=== PATIENT | female | born 1960 | race American Indian/Alaskan Native ===

== ENCOUNTER 2016-10-31 12:58 | Emergency (ER) | payer MEDICAID ==
[2016-10-31] MEDS ORDERED: LORazepam 2 MG/ML MDV IV ONE (13:05)
[2016-10-31] MEDS ORDERED: Sodium Chloride 0.9% 1,000 ML IV SCH (13:45)
[2016-10-31 13:49] LABS: CHLORIDE,CL 103 mmol/L (98-115); SODIUM,NA 143 mmol/L (136-145)
[2016-10-31] MEDS ORDERED: LORazepam 2 MG/ML MDV IVPUSH ONE ×2 (13:50)
[2016-10-31 14:04] LABS: O2 DELIVERY DEVICE NON REBR MASK; O2 FLOW RATE 0 L/min
[2016-10-31 14:08] LABS: PCO2 ARTERIAL 83 mmHG (35-45)
[2016-10-31 14:09] LABS: BASE EXCESS ARTERIAL -9 mmol/L (-2-3); BICARBONATE,ARTERIAL 21.5 mmol/L (22-26); O2 SATURATION ARTERIAL 93 % (95-98); PO2 ARTERIAL 104 mmHG (80-105)
[2016-10-31] MEDS ORDERED: Clindamycin Phosphate 600 MG in Dextrose 5% in Water 50 ML IV ONE ×4 (14:14→14:15)
[2016-10-31] MEDS ORDERED: Sodium Chloride 0.9% 50 ML ONE (14:27)
--- NOTE | 2016-10-31 14:31 | EDM.PDOC ---
ED HPI SEIZURE COMPLAINT - General Stated Complaint: Seizures Time Seen by Provider: 10/31/16 12:58 Source of Information: Reports: EMS, Family () History Limitations: Reports: Altered mental status - History of Present Illness INITIAL COMMENTS - FREE TEXT/NARRATIVE: Patient presents via ambulance with seizures. Her says her right hand was clenched and he has noticed that to be a sign of seizure starting so he gave her a second dose of her Keppra. He thinks she has been consistent in taking the Keppra everyday. She has been unresponsive but breathing on her own since the seizure began. She seemed to have serial seizures back to back. - Related Data Allergies/ADRs: Allergies Allergy/AdvReac Type Severity Reaction Status Date / Time No Known Allergies Allergy Verified 06/11/16 12:38 Home Meds: Home Meds levETIRAcetam [Keppra] 1,000 mg PO BID 11/27/13 [History] Social & Family History - Tobacco Use Second Hand Smoke Exposure: Yes - Alcohol Use Days Per Week of Alcohol Use: 0 - Recreational Drug Use Recreational Drug Use: Yes Drug Use in Last 12 Months: Yes Recreational Drug Type: Reports: Marijuana/Hashish Recreational Drug Last Use: Jul 2013 - Living Situation & Occupation Living situation: Reports: ED ROS GENERAL - Review of Systems Review Of Systems: Unable To Obtain - Physical Exam Exam: See Below Exam Limited By: Altered mental status General Appearance: obtunded Eye Exam: bilateral eye: other (right pupil is reactive, left has old injury) Nose: normal inspection, no blood Throat/Mouth: Normal lips, No airway compromise. No: Evidence of tongue biting , Perioral cyanosis Head Exam: atraumatic, normocephalic Respiratory/Chest: respiratory distress (sometimes she was breathing okay other times she was gasping or choking a little), crackles (bilat) Cardiovascular: tachycardia GI/Abdominal: no distention Neuro Exam (Abbreviated): unresponsive Extremities: no pedal edema Skin Exam: Warm, Dry, Intact, Normal color, No rash Course - Orders/Labs/Meds Orders: Active Orders 24 hr Category Date Time Status Chest 1V Frontal [CR] Routine Exams 10/31/16 Ordered CULTURE BLOOD [BC] Stat Lab 10/31/16 13:40 Ordered CULTURE BLOOD [BC] Stat Lab 10/31/16 13:40 Ordered DRUG SCREEN, URINE [URCHEM] Stat Lab 10/31/16 13:24 Uncollected KEPPRA [REF] Stat Lab 10/31/16 13:24 Ordered UA W/MICROSCOPIC [URIN] Stat Lab 10/31/16 13:25 Uncollected Clindamycin Phosphate [Cleocin] 600 mg Med 10/31/16 14:14 Ordered Dextrose 5% in Water 50 ml IV ONETIME Sodium Chloride 0.9% [Normal Saline] 1,000 ml Med 10/31/16 13:45 Active IV ASDIRECTED Blood Culture x2 Reflex Set [OM.PC] Stat Oth 10/31/16 13:40 Ordered Medication Orders Sodium Chloride (Normal Saline) 1,000 mls @ 500 mls/hr IV ASDIRECTED [facility]DR[facility] Clindamycin Phosphate 600 mg/ (Dextrose/Water) 54 mls @ 150 mls/hr IV ONETIME ONE Stop: 10/31/16 14:35 Labs: Laboratory Tests 10/31/16 10/31/16 10/31/16 Range/Units 13:10 13:10 13:10 WBC 18.8 H (5.0-10.0) 10^3/uL RBC 5.33 (3.80-5.50) 10^6/uL Hgb 16.9 H (12.0-16.0) g/dL Hct 51.8 H (37.0-47.0) % MCV 97.1 H (82.0-92.0) fL MCH 31.6 H (27.0-31.0) pg MCHC 32.6 (32.0-36.0) g/dL RDW 12.7 (11.5-14.5) % Plt Count 216 (150-300) 10^3/uL MPV 10.1 (7.4-10.4) fL Neut % (Auto) 48.7 L (50.0-70.0) % Lymph % (Auto) 43.1 H (20.0-40.0) % Jay % (Auto) 6.3 (2.0-8.0) % Eos % (Auto) 1.1 (1.0-3.0) % Baso % (Auto) 0.8 (0.0-1.0) % Neut # (Auto) 9.1 H (2.5-7.0) 10^3/uL Lymph # (Auto) 8.1 H (1.0-4.0) 10^3/uL Jay # (Auto) 1.2 H (0.1-0.8) 10^3/uL Eos # (Auto) 0.2 (0.1-0.3) 10^3/uL Baso # (Auto) 0.2 H (0.0-0.1) 10^3/uL ABG pH (7.35-7.45) ABG pCO2 (35-45) mmHG ABG pO2 (80-105) mmHG ABG HCO3 (22-26) mmol/L ABG Total CO2 (23-27) mmol/L ABG O2 Saturation (95-98) % ABG Base Excess (-2-3) mmol/L O2 Delivery Device Oxygen Flow Rate L/min Sodium 143 (136-145) mmol/L Potassium 4.0 (3.3-5.3) mmol/L Chloride 103 (98-115) mmol/L Carbon Dioxide 18.4 L (21.0-32.0) mmol/L BUN 11 (6-25) mg/dL Creatinine 0.78 (0.51-1.17) mg/dL Est Cr Clr Drug Dosing 68.72 mL/min Estimated GFR (MDRD) > 60 mL/min Glucose 241 H (70-110) mg/dL Calcium 9.3 (8.7-10.3) mg/dL Magnesium 2.5 H (1.8-2.4) mg/dL Total Bilirubin 0.6 (0.2-1.0) mg/dL AST 108 H (15-37) U/L ALT 109 H (12-78) U/L Alkaline Phosphatase 159 H (46-116) IU/L Total Protein 9.2 H (6.4-8.2) g/dL Albumin 4.22 (3.00-4.80) g/dL 10/31/16 Range/Units 13:55 WBC (5.0-10.0) 10^3/uL RBC (3.80-5.50) 10^6/uL Hgb (12.0-16.0) g/dL Hct (37.0-47.0) % MCV (82.0-92.0) fL MCH (27.0-31.0) pg MCHC (32.0-36.0) g/dL RDW (11.5-14.5) % Plt Count (150-300) 10^3/uL MPV (7.4-10.4) fL Neut % (Auto) (50.0-70.0) % Lymph % (Auto) (20.0-40.0) % Jay % (Auto) (2.0-8.0) % Eos % (Auto) (1.0-3.0) % Baso % (Auto) (0.0-1.0) % Neut # (Auto) (2.5-7.0) 10^3/uL Lymph # (Auto) (1.0-4.0) 10^3/uL Jay # (Auto) (0.1-0.8) 10^3/uL Eos # (Auto) (0.1-0.3) 10^3/uL Baso # (Auto) (0.0-0.1) 10^3/uL ABG pH 7.02 L* (7.35-7.45) ABG pCO2 83 H* (35-45) mmHG ABG pO2 104 (80-105) mmHG ABG HCO3 21.5 L (22-26) mmol/L ABG Total CO2 24 (23-27) mmol/L ABG O2 Saturation 93 L (95-98) % ABG Base Excess -9 L (-2-3) mmol/L O2 Delivery Device Non rebr mask Oxygen Flow Rate 0 L/min Sodium (136-145) mmol/L Potassium (3.3-5.3) mmol/L Chloride (98-115) mmol/L Carbon Dioxide (21.0-32.0) mmol/L BUN (6-25) mg/dL Creatinine (0.51-1.17) mg/dL Est Cr Clr Drug Dosing mL/min Estimated GFR (MDRD) mL/min Glucose (70-110) mg/dL Calcium (8.7-10.3) mg/dL Magnesium (1.8-2.4) mg/dL Total Bilirubin (0.2-1.0) mg/dL AST (15-37) U/L ALT (12-78) U/L Alkaline Phosphatase (46-116) IU/L Total Protein (6.4-8.2) g/dL Albumin (3.00-4.80) g/dL Meds: Medications Generic Name Dose Route Start Last Admin Trade Name Obi PRN Reason Stop Dose Admin Sodium Chloride 1,000 mls @ 500 mls/hr 10/31/16 13:45 Normal Saline IV ASDIRECTED [facility] Clindamycin Phosphate 600 mg/ 54 mls @ 150 mls/hr 10/31/16 14:14 Dextrose/Water IV 10/31/16 14:35 ONETIME ONE - Re-Assessments/Exams Free Text/Narrative Re-Assessment/Exam: 10/31/16 15:44 Patient showed mild seizure activity a couple of times and occasionally was moving around a little on the bed but mostly was just unresponsive and unaware of her surroundings. WBC is 18.8, CXR shows bilat infiltrates, pH is 7.02. Tox screen positive for marijuana. Keppra level sent out. Dr. Eng ( [facility] in [place]) accepted for transfer. She was intubated by flight crew and taken to [place]. Departure - Departure Time of Disposition: 15:35 Disposition: DC/Tfer to Acute Hospital 02 Condition: serious Clinical Impression: Unresponsive state, Seizures, generalized convulsive - My Orders Last 24 Hours: My Active Orders 10/31/16 Chest 1V Frontal [CR] Routine 10/31/16 13:24 DRUG SCREEN, URINE [URCHEM] Stat KEPPRA [REF] Stat 10/31/16 13:25 UA W/MICROSCOPIC [URIN] Stat 10/31/16 13:40 CULTURE BLOOD [BC] Stat CULTURE BLOOD [BC] Stat Blood Culture x2 Reflex Set [OM.PC] Stat 10/31/16 13:45 Sodium Chloride 0.9% [Normal Saline] 1,000 ml IV ASDIRECTED 10/31/16 14:14 Clindamycin Phosphate [Cleocin] 600 mg Dextrose 5% in Water 50 ml IV ONETIME - Assessment/Plan Last 24 Hours: My Active Orders 10/31/16 Chest 1V Frontal [CR] Routine 10/31/16 13:24 DRUG SCREEN, URINE [URCHEM] Stat KEPPRA [REF] Stat 10/31/16 13:25 UA W/MICROSCOPIC [URIN] Stat 10/31/16 13:40 CULTURE BLOOD [BC] Stat CULTURE BLOOD [BC] Stat Blood Culture x2 Reflex Set [OM.PC] Stat 10/31/16 13:45 Sodium Chloride 0.9% [Normal Saline] 1,000 ml IV ASDIRECTED 10/31/16 14:14 Clindamycin Phosphate [Cleocin] 600 mg Dextrose 5% in Water 50 ml IV ONETIME
== END 2016-10-31 15:33 ==
LOC: KA.ED 12:58
DX: R56.9 Unspecified convulsions (principal)
CPT/HCPCS: 36415; 36600; 71010; 80053; 80299; 80305; 81001; 82803; 83735; 85025; 87040; 96361; 96365; 99285; J2060; J7050; J7060; 80177; S0077

== ENCOUNTER 2017-08-02 09:39 | Emergency (ER) | payer MEDICAID ==
[2017-08-02] MEDS ORDERED: LORazepam 2 MG/ML SDV IVPUSH ONE (09:51)
[2017-08-02] MEDS ORDERED: Sodium Chloride 0.9% 1,000 ML IV ONE (09:52)
--- NOTE | 2017-08-02 09:58 | EDM.PDOC ---
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 EMS arrived and patient was post-ictal, but at time of arrival patient began to seize again prompting treatment. Pt has had 3 seizures in the last year requiring hospitalization for aspiration pneumonia in the past. Pt's seizures are well controlled on Keppra per . Family states no recent injuries, compliant with medication, no lifestyle changes of note. Onset: Sudden Duration: Chronic Location: Reports: Generalized Associated Symptoms: Reports: Confusion, Seizure. Denies: Fever/Chills - Related Data Allergies Allergy/AdvReac Type Severity Reaction Status Date / Time No Known Allergies Allergy Verified 08/02/17 10:58 Home Meds: Home Meds Carvedilol [Coreg] 3.125 mg PO DAILY 08/02/17 [History] levETIRAcetam [Keppra Xr] 1,500 mg PO BID 08/02/17 [History] Social & Family History - Tobacco Use Second Hand Smoke Exposure: Yes - Alcohol Use Days Per Week of Alcohol Use: 0 - Recreational Drug Use Recreational Drug Use: Yes Drug Use in Last 12 Months: Yes Recreational Drug Type: Reports: Marijuana/Hashish Recreational Drug Last Use: Jul 2013 - Living Situation & Occupation Living situation: Reports: ED ROS GENERAL - Review of Systems Review Of Systems: See Below Constitutional: Reports: No Symptoms HEENT: Reports: No Symptoms Respiratory: Reports: No Symptoms Cardiovascular: Reports: No Symptoms Endocrine: Reports: No Symptoms GI/Abdominal: Reports: No Symptoms : Reports: No Symptoms Musculoskeletal: Reports: No Symptoms Skin: Reports: No Symptoms Neurological: Reports: Confusion, Seizure Psychiatric: Reports: Confusion Hematologic/Lymphatic: Reports: No Symptoms Immunologic: Reports: No Symptoms - Physical Exam Exam: See Below Exam Limited By: Altered Mental Status General Appearance: Alert, WD/WN Eye Exam: Bilateral Eye: EOMI, PERRL Ears: Normal External Exam, Normal Canal, Hearing Grossly Normal, Normal TMs Nose: Normal Inspection, Normal Mucosa, No Blood Throat/Mouth: Normal Inspection, Normal Lips, Normal Teeth, Normal Gums, Normal Oropharynx, Normal Voice, No Airway Compromise Head Exam: Atraumatic, Normocephalic Neck: Normal Inspection, Supple, Non-Tender, Full Range of Motion Respiratory/Chest: No Respiratory Distress, Lungs Clear, Normal Breath Sounds, No Accessory Muscle Use, Chest Non-Tender Cardiovascular: Normal Peripheral Pulses, Regular Rate, Rhythm, No Edema, No Gallop, No JVD, No Murmur, No Rub GI/Abdominal: Normal Bowel Sounds, Soft, Non-Tender, No Organomegaly, No Distention, No Abnormal Bruit, No Mass Neuro Exam (Abbreviated): Alert, CN II-XII Intact, Normal Reflexes, No Motor/ Sensory Deficits, Disoriented, Slow to Respond. No: Oriented, Normal Cognition Back Exam: Normal Inspection, Full Range of Motion, NT Extremities: Normal Inspection, Normal Range of Motion, Non-Tender, No Pedal Edema, Normal Capillary Refill Psychiatric: Normal Mood, Flat Affect Skin Exam: Warm, Dry, Intact, Normal Color, No Rash EKG INTERPRETATION EKG Date: 08/02/17 Time: 09:53 Rhythm: NSR Rate (Beats/Min): 91 [place]: LAD-Left [place] Deviation P-Wave: Present QRS: LBBB ST-T: Normal QT: Normal Comparison: NA - No Prior EKG Course - Vital Signs Last Recorded V/S: Last Vital Signs Temp 36.6 C 08/02/17 10:53 Pulse 66 08/02/17 10:45 Resp 20 08/02/17 10:53 BP 168/99 H 08/02/17 10:53 Pulse Ox 93 L 08/02/17 10:53 - Orders/Labs/Meds Orders: Active Orders 24 hr Category Date Time Status EKG Documentation Completion [RC] ASDIRECTED Care 08/02/17 09:51 Active Chest 1V Frontal [CR] Stat Exams 08/02/17 09:51 Ordered Head wo Cont [CT] Stat Exams 08/02/17 09:51 Ordered DRUG SCREEN, URINE [URCHEM] Stat Lab 08/02/17 10:02 Uncollected KEPPRA [REF] Stat Lab 08/02/17 10:30 Received Labs: Laboratory Tests 08/02/17 08/02/17 08/02/17 Range/Units 10:15 10:30 10:30 WBC 6.7 (5.0-10.0) 10^3/uL RBC 4.67 (3.80-5.50) 10^6/uL Hgb 14.8 (12.0-16.0) g/dL Hct 46.0 (37.0-47.0) % MCV 98.4 H (82.0-92.0) fL MCH 31.7 H (27.0-31.0) pg MCHC 32.2 (32.0-36.0) g/dL RDW 12.3 (11.5-14.5) % Plt Count 204 (150-300) 10^3/uL MPV 8.7 (7.4-10.4) fL Neut % (Auto) 64.4 (50.0-70.0) % Lymph % (Auto) 27.1 (20.0-40.0) % [place] % (Auto) 5.6 (2.0-8.0) % Eos % (Auto) 1.9 (1.0-3.0) % Baso % (Auto) 1.0 (0.0-1.0) % Neut # (Auto) 4.3 (2.5-7.0) 10^3/uL Lymph # (Auto) 1.8 (1.0-4.0) 10^3/uL [place] # (Auto) 0.4 (0.1-0.8) 10^3/uL Eos # (Auto) 0.1 (0.1-0.3) 10^3/uL Baso # (Auto) 0.1 (0.0-0.1) 10^3/uL Sodium 137 (136-145) mmol/L Potassium 4.0 (3.3-5.3) mmol/L Chloride 103 (98-115) mmol/L Carbon Dioxide 28.0 (21.0-32.0) mmol/L BUN 11 (6-25) mg/dL Creatinine 0.57 (0.51-1.17) mg/dL Est Cr Clr Drug Dosing 88.59 mL/min Estimated GFR (MDRD) > 60 mL/min Glucose 107 (70-110) mg/dL Calcium 8.3 L (8.7-10.3) mg/dL Total Bilirubin 0.7 (0.2-1.0) mg/dL AST 93 H (15-37) U/L ALT 93 H (12-78) U/L Alkaline Phosphatase 91 (46-116) IU/L Creatine Kinase 71 (26-276) U/L CK-MB (CK-2) < 0.50 (0.00-4.30) ng/mL Troponin I < 0.04 (0.00-0.070) ng/mL Total Protein 7.8 (6.4-8.2) g/dL Albumin 3.76 (3.00-4.80) g/dL Specimen Type Urinvoid Urine Color Yellow (YELLOW) Urine Appearance Cloudy H (CLEAR) Urine pH 5.0 (5.0-9.0) Ur Specific [place] >= 1.030 (1.005-1.030) Urine Protein 100 H (NEGATIVE) mg/dL Urine Glucose (UA) Negative (NEGATIVE) mg/dL Urine Ketones Negative (NEGATIVE) mg/dL Urine Occult Blood Trace-intact H (NEGATIVE) Urine Nitrite Negative (NEGATIVE) Urine Bilirubin Negative (NEGATIVE) Urine Urobilinogen 0.2 (0.2-1.0) E.U./dL Ur Leukocyte Esterase Trace H (NEGATIVE) Urine RBC 0-5 /HPF Urine WBC 20-30 H /HPF Ur Epithelial Cells Many H /LPF Amorphous Sediment Many H (0/HPF) /HPF Urine Bacteria Many H (NONE TO FEW) /HPF Meds: Medications Discontinued Medications Generic Name Dose Route Start Last Admin Trade Name Freq PRN Reason Stop Dose Admin Sodium Chloride 1,000 mls @ 999 mls/hr 08/02/17 09:52 08/02/17 10:45 Normal Saline IV 08/02/17 10:52 999 mls/hr .BOLUS ONE Administration Lorazepam 2 mg 08/02/17 09:51 08/02/17 09:40 Ativan IVPUSH 08/02/17 09:52 2 mg ONETIME ONE Administration - Radiology Interpretation Free Text/Narrative:: CT Head-NAD CXR- NAD Departure - Departure Time of Disposition: 11:32 Disposition: DC/Tfer to Acute Hospital 02 Condition: Serious Clinical Impression: Seizure disorder - Discharge Information Referrals: PCP,Unknown [Primary Care Provider] - Forms: ED Department Discharge, Interfacility Transfer EMTALA - My Orders Last 24 Hours: My Active Orders 08/02/17 09:51 EKG Documentation Completion [RC] ASDIRECTED Chest 1V Frontal [CR] Stat Head wo Cont [CT] Stat 08/02/17 10:02 DRUG SCREEN, URINE [URCHEM] Stat 08/02/17 10:30 KEPPRA [REF] Stat - Assessment/Plan Last 24 Hours: My Active Orders 08/02/17 09:51 EKG Documentation Completion [RC] ASDIRECTED Chest 1V Frontal [CR] Stat Head wo Cont [CT] Stat 08/02/17 10:02 DRUG SCREEN, URINE [URCHEM] Stat 08/02/17 10:30 KEPPRA [REF] Stat Assessment:: 1. Seizure disorder with protracted postictal state 2. Urinary tract infection Plan: 1. transfer to [facility] for altered mental status 2. rocephin 1g IV for UTI 3. supportive care
[2017-08-02 11:14] LABS: CHLORIDE,CL 103 mmol/L (98-115); SODIUM,NA 137 mmol/L (136-145)
[2017-08-02 11:44] VITALS: BP 158/67
[2017-08-02] MEDS ORDERED: cefTRIAXone 1 GM Vial IVPUSH SCH (11:45)
[2017-08-02] MEDS ORDERED: Sodium Chloride 0.9% 1,000 ML ONE (12:22)
[2017-08-02] MEDS ORDERED: LORazepam 2 MG/ML SDV ONE (12:25)
== END 2017-08-02 12:35 ==
LOC: KA.ED 09:39
DX: G40.909 Epilepsy, unspecified, not intractable, without status epilepticus (principal); N39.0 Urinary tract infection, site not specified; Z79.899 Other long term (current) drug therapy
CPT/HCPCS: 70450; 71010; 80053; 80177; 81001; 82550; 82553; 84484; 85025; 93005; 96361; 96374; 96375; 99285; J0696; J2060; J7030; 36415

== ENCOUNTER 2018-10-16 13:47 | Emergency (ER) | payer MEDICAID ==
[2018-10-16 14:02] VITALS: BP 136/77
[2018-10-16 14:46] LABS: ANION GAP 24.7 mmol/L (5-15); CHLORIDE,CL 103 mmol/L (98-115); SODIUM,NA 152 mmol/L (136-145)
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
== END 2018-10-16 15:00 | disposition home or self-care (01) ==
LOC: KA.ED 13:47
DX: R10.84 Generalized abdominal pain (principal); I10 Essential (primary) hypertension; J44.9 Chronic obstructive pulmonary disease, unspecified
CPT/HCPCS: 36415; 80053; 80305-QW; 81001; 83690; 85025; 99284; G0480

== ENCOUNTER 2020-01-31 10:50 | Emergency (ER) | payer MEDICAID ==
[2020-01-31 10:58] VITALS: BP 157/81; PULSE 71
[2020-01-31] MEDS: Sodium Chloride 0.9% 1,000 ML IV ONE (11:01)
[2020-01-31] MEDS: Famotidine 20 MG/2 ML SDV IVPUSH ONE (11:04)
[2020-01-31] MEDS: methylPREDNISolone Sodium Succinate 125 MG/2 ML SDV IVPUSH ONE (11:07)
[2020-01-31] MEDS: diphenhydrAMINE 50 MG/ML SDV IVPUSH ONE (11:09)
[2020-01-31] MEDS: Sodium Chloride 0.9% 1,000 ML ONE (11:10)
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
== END 2020-01-31 12:17 | disposition home or self-care (01) ==
LOC: KA.ED 10:50
DX: T78.3XXA Angioneurotic edema, initial encounter (principal); R56.9 Unspecified convulsions; I10 Essential (primary) hypertension; J44.9 Chronic obstructive pulmonary disease, unspecified; Z79.899 Other long term (current) drug therapy
CPT/HCPCS: 96374; 96375; 99284-25; J1200; J2930; J3490; J7030

== ENCOUNTER 2020-02-07 21:50 | Emergency (ER) | payer MEDICAID ==
[2020-02-07 22:27] VITALS: BP 130/81; PULSE 74
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
[2020-02-07 22:44] LABS: ANION GAP 13.3 mmol/L (5-15); CHLORIDE,CL 102 mmol/L (98-115); SODIUM,NA 137 mmol/L (136-145)
== END 2020-02-07 23:25 | disposition home or self-care (01) ==
LOC: KA.ED 21:50
DX: R25.2 Cramp and spasm (principal); I10 Essential (primary) hypertension; J44.9 Chronic obstructive pulmonary disease, unspecified; Z79.899 Other long term (current) drug therapy
CPT/HCPCS: 80053; 83735; 85025; 99283

== ENCOUNTER 2020-06-19 10:16 | Emergency (ER) | payer MEDICAID ==
[2020-06-19] MEDS ORDERED: Midazolam 1 MG/ML 2 ML SDV IVPUSH ONE ×2 (10:25→11:30)
--- NOTE | 2020-06-19 10:56 | CR ---
[id number] RAD/RAD Chest PA or AP 1V EXAM: RAD Chest PA or AP 1V INDICATION: SEIZURE, UNRESPOSIVE COMPARISON: July 30, 2018. DISCUSSION: Interval placement of an endotracheal tube with tip approximately 1.5 cm above the dunia. There is a nasogastric tube with tip overlying the stomach. Cardiomediastinal silhouette is stable in size and contour. No infiltrate, effusion, pneumothorax, or edema. Pulmonary hyperinflation. IMPRESSION: As above. Jessee Enriquez DO 06/19/20 1056 Thank you for allowing us to participate in the care of your patient.
[2020-06-19 10:58] LABS: ANION GAP 20.3 mmol/L (5-15); CHLORIDE,CL 105 mmol/L (98-115); SODIUM,NA 143 mmol/L (136-145)
[2020-06-19] MEDS ORDERED: levETIRAcetam in NaCl (iso-os) 2,000 MG in Premix Bag 1 BAG IV ONE ×2 (11:21)
[2020-06-19] MEDS: levETIRAcetam in NaCl (iso-os) 500 MG in Premix Bag 1 BAG IV ONE ×4 (11:25→15:27)
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
[2020-06-19] MEDS ORDERED: Propofol 200 MG/20 ML SDV IV ONE (11:45)
[2020-06-19 12:36] VITALS: BP 120/73; PULSE 97
[2020-06-19] MEDS: Propofol 200 MG/20 ML SDV ONE (15:27)
[2020-06-20] MEDS: Propofol 200 MG/20 ML SDV ONE (17:18)
== END 2020-06-19 11:45 ==
LOC: KA.ED 10:16
DX: G40.409 Other generalized epilepsy and epileptic syndromes, not intractable, without status epilepticus (principal); I10 Essential (primary) hypertension; J44.9 Chronic obstructive pulmonary disease, unspecified; Z79.899 Other long term (current) drug therapy; Z20.828 Contact with and (suspected) exposure to other viral communicable diseases
CPT/HCPCS: 31500; 36415; 71045; 80053; 85025; 96365; 99284; 99285-25; J1953; J2250; J2704; U0002

== ENCOUNTER 2020-10-24 14:04 | Emergency (ER) | payer MEDICAID ==
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
--- NOTE | 2020-10-24 15:31 | CR ---
[id number] RAD/RAD Chest PA or AP 1V EXAM: RAD Chest PA or AP 1V INDICATION: SEIZURE. COMPARISON: June 19, 2020. DISCUSSION: Cardiomediastinal silhouette is normal in size and contour. No infiltrate, effusion, pneumothorax, or edema. Pulmonary hyperinflation. IMPRESSION: No acute cardiopulmonary abnormality. Jessee Enriquez DO 10/24/20 1529 Thank you for allowing us to participate in the care of your patient.
--- NOTE | 2020-10-24 15:32 | CT ---
[id number] CT/CT Head WO IV EXAM: CT Head WO IV CLINICAL DATA: SEIZURE. COMPARISON STUDY: July 2018. FINDINGS: No intracranial hemorrhage, extra-axial fluid collection, mass, or acute ischemia. No hydrocephalus. Inferior left frontal lobe encephalomalacia, similar to the prior examination. Changes of chronic small vessel disease throughout the brain, including bilateral symmetric parenchymal atrophy. Findings have increased compared to the prior examination. Calcified atherosclerotic plaque in the intracranial segments of both internal carotid arteries. Paranasal sinuses and mastoid air cells are clear. IMPRESSION: No acute intracranial findings. Progression of chronic small vessel disease throughout both cerebral hemispheres compared to 2018. Yogi Kidd MD 10/24/20 2005 Thank you for allowing us to participate in the care of your patient.
[2020-10-24 15:35] LABS: BARBITURATE SCREEN,URINE NEGATIVE (NEGATIVE); BENZODIAZEPINES SCREEN,URINE NEGATIVE (NEGATIVE); TCA SCREEN,URINE NEGATIVE (NEGATIVE); THC SCREEN,URINE 50 NG/ML POSITIVE (NEGATIVE)
[2020-10-24 16:01] LABS: ANION GAP 15.8 mmol/L (5-15); CHLORIDE,CL 104 mmol/L (98-107); SODIUM,NA 142 mmol/L (136-145)
[2020-10-24] MEDS ORDERED: Sodium Chloride 0.9% 500 ML IV SCH (16:15)
[2020-10-24] MEDS ORDERED: NS + KCl 20mEq/L 1,000 ML IV SCH (16:15)
[2020-10-24] MEDS ORDERED: Potassium Chloride 20 MEQ in Premix Bag 1 BAG IV ONE (16:16)
[2020-10-24 17:38] VITALS: BP 145/89; PULSE 74
== END 2020-10-24 18:10 ==
LOC: KA.ED 14:04
DX: G40.909 Epilepsy, unspecified, not intractable, without status epilepticus (principal); J44.9 Chronic obstructive pulmonary disease, unspecified; I42.9 Cardiomyopathy, unspecified; I10 Essential (primary) hypertension; Z95.5 Presence of coronary angioplasty implant and graft
CPT/HCPCS: 36415; 70450; 71045; 80053; 80305-QW; 81001; 82550; 82553; 83605; 84484; 85025; 85730; 86140; 87086; 93005; 96365; 96366; 99284; 99285-25; J3480; J7040

== ENCOUNTER 2021-06-26 08:16 | Emergency (ER) | payer MEDICAID ==
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
[2021-06-26] MEDS ORDERED: Sodium Chloride 0.9% 1,000 ML IV ONE (08:25)
[2021-06-26] MEDS ORDERED: Sodium Chloride 0.9% 10 ML Syringe FLUSH PRN (08:26)
[2021-06-26] MEDS ORDERED: levETIRAcetam in NaCl (iso-os) 500 MG in Premix Bag 1 BAG IV ONE ×4 (08:34→10:16)
--- NOTE | 2021-06-26 09:13 | CR ---
[id number] RAD/RAD Chest PA or AP 1V EXAM: RAD Chest PA or AP 1V INDICATION: SEIZURE. COMPARISON: October 24, 2020. DISCUSSION/IMPRESSION: Cardiomediastinal silhouette is normal in size and contour. Lungs are clear. No pleural effusion or pneumothorax. Yogi Kidd MD 06/26/21 0913 Thank you for allowing us to participate in the care of your patient.
[2021-06-26 09:16] LABS: ANION GAP 16.1 mmol/L (5-15); CHLORIDE,CL 105 mmol/L (98-107); SODIUM,NA 144 mmol/L (136-145)
[2021-06-26 10:06] LABS: BARBITURATE SCREEN,URINE NEGATIVE (NEGATIVE); BENZODIAZEPINES SCREEN,URINE NEGATIVE (NEGATIVE); TCA SCREEN,URINE NEGATIVE (NEGATIVE); THC SCREEN,URINE 50 NG/ML POSITIVE (NEGATIVE)
[2021-06-26 10:31] LABS: CORONAVIRUS COVID-19 NAA NEGATIVE (NEGATIVE)
[2021-06-26 10:50] VITALS: BP 151/98; PULSE 87
[2021-06-26] MEDS ORDERED: Sodium Chloride 0.9% 1,000 ML ONE (13:08)
== END 2021-06-26 11:10 | disposition home or self-care (01) ==
LOC: KA.ED 08:16
DX: R56.9 Unspecified convulsions (principal); R73.9 Hyperglycemia, unspecified; E87.6 Hypokalemia; I11.9 Hypertensive heart disease without heart failure; J44.9 Chronic obstructive pulmonary disease, unspecified; Z20.822 Contact with and (suspected) exposure to COVID-19
CPT/HCPCS: 0240U; 36415; 71045; 80053; 80177; 80305; 81001; 83605; 84484; 85025; 93005; 96365; 96375; 96376; 99285; J1953; J3360; J7030; 93010; 99284

== ENCOUNTER 2021-06-26 12:21 | Inpatient (IN) | payer MEDICAID ==
[2021-06-26] MEDS ORDERED: levETIRAcetam in NaCl (iso-os) 500 MG in Premix Bag 1 BAG IV ONE ×2 (12:25)
[2021-06-26] MEDS ORDERED: LORazepam 2 MG/ML SDV IVPUSH ONE ×2 (12:31→14:46)
[2021-06-26] MEDS ORDERED: LORazepam 2 MG/ML SDV ONE (12:32)
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
[2021-06-26] MEDS ORDERED: Sodium Chloride 0.9% 1,000 ML IV ONE (15:08)
[2021-06-26] MEDS ORDERED: Sodium Chloride 0.9% 1,000 ML IV SCH (15:15)
[2021-06-26] MEDS ORDERED: Sodium Chloride 0.9% 500 ML IV SCH (15:15)
[2021-06-26] MEDS ORDERED: LORazepam 2 MG/ML SDV IVPUSH PRN (15:18)
[2021-06-26 18:06] VITALS: BP 97/65; PULSE 93
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
--- NOTE | 2021-06-26 19:05 | PCM.DCSUM1 ---
Discharge Summary - Hospital Course Free Text/Narrative:: Date of admission: 06/26/21 Date of discharge: 06/26/21 Admission diagnoses: # Recurrent seizures # Hx seizure disorder # Hx TBI, 1980 Discharge diagnoses: # Right sided complete hemiparesis # Left unresponsive pupil # Recurrent seizures # Hx seizure disorder # Hx TBI, 1980 Consultations: Dr. Hernandez, [facility] Procedures: CT head x2 (@1245 and 1800), both without acute abnormality Hospital course: Patient was admitted to for recurrent seizures of unknown etiology. Please see ED documentation for details. Was notified by floor nursing staff that her L pupil was unresponsive to light, while R pupil was reactive. CT head without contrast was ordered and MARIO Mulligan, went to the hospital and evaluated patient at bedside on the floor around 1645 noting complete right-sided hemiparesis. Last known well time was around 1200 after discharge from first ED visit prior to arrival at the ED for the 2nd visit at which time she was actively seizing and required additional benzodiazepines and was subsequently unable to obtain reliable further evaluation. Upon discussion with ED provider and nursing staff, she was noting during the initial presenting seizure during her 2nd ED stay to at least actively move all extremities in some capacity. CT head obtained at 1800 was again without acute abnormalities, but given onset of R sided complete hemiparesis and L pupil being unresponsive to light, concern for CVA and [facility] contacted with status update and they accepted for transfer directly to [facility] ED for further evaluation. - Discharge Data Discharge Date: 06/26/21 Discharge Disposition: DC/Tfer to Acute Hospital 02 Condition: Good - Referral to Home Health Primary Care Physician: Magdalena Cabrales NP - Discharge Plan *PRESCRIPTION DRUG MONITORING PROGRAM REVIEWED*: Not Applicable *COPY OF PRESCRIPTION DRUG MONITORING REPORT IN PATIENT CHANEL: Not Applicable Home Medications: Home Meds levETIRAcetam [Keppra Xr] 1,500 mg PO BID 08/02/17 [History] Umeclidinium Brm/Vilanterol Tr [Anoro Ellipta 62.5-25 MCG] 1 puff INH DAILY 0 10/16/18 [History] - Discharge Summary/Plan Comment DC Time >30 min.: Yes Total # of Minutes for Discharge Time: 60 - Patient Data Vitals - Most Recent: Last Vital Signs Temp 37.2 C 06/26/21 18:05 Pulse 93 06/26/21 18:05 Resp 20 06/26/21 18:05 BP 97/65 06/26/21 18:05 Pulse Ox 95 06/26/21 18:05 Weight - Most Recent: 64.909 kg I&O - Last 24 hours: Intake & Output 06/26/21 06/26/21 06/26/21 06:59 14:59 22:59 Intake Total 233 Balance 233 Lab Results - Last 24 hrs: Laboratory Results - last 24 hr 06/26/21 06/26/21 06/26/21 Range/Units 12:30 13:25 13:25 POC Glucose 139 (70-140) mg/dL Ammonia 10.0 L (11.2-31.7) umol/L Creatine Kinase 178 (26-276) U/L Ethyl Alcohol < 3 H (NOT DETECTED) mg/dL Med Orders - Current: Current Medications Sodium Chloride (Normal Saline) 1,000 mls @ 150 mls/hr IV ASDIRECTED SANDRA Last Admin: 06/26/21 15:13 Dose: 150 mls/hr Documented by: Lorazepam (Lorazepam 2 Mg/Ml Sdv) 1 mg IVPUSH Q1H PRN PRN Reason: Seizures Last Admin: 06/26/21 16:27 Dose: 1 mg Documented by: Discontinued Medications Diazepam (Diazepam 10 Mg/2 Ml Syringe) 5 mg IVPUSH ONETIME ONE Stop: 06/26/21 12:24 Last Admin: 06/26/21 12:22 Dose: 5 mg Documented by: Levetiracetam 500 mg/ Premix 100 mls @ 400 mls/hr IV ONETIME ONE Stop: 06/26/21 12:39 Last Admin: 06/26/21 12:27 Dose: 400 mls/hr Documented by: Sodium Chloride (Normal Saline) 500 mls @ 999 mls/hr IV .BOLUS SANDRA Sodium Chloride (Normal Saline) 1,000 mls @ 999 mls/hr IV .BOLUS ONE Stop: 06/26/21 16:08 Last Admin: 06/26/21 14:00 Dose: 999 mls/hr Documented by: Lorazepam (Lorazepam 2 Mg/Ml Sdv) 2 mg IVPUSH ONETIME ONE Stop: 06/26/21 12:32 Last Admin: 06/26/21 12:33 Dose: 2 mg Documented by: Lorazepam (Lorazepam 2 Mg/Ml Sdv) Confirm Administered Dose 2 mg .ROUTE .STK-MED ONE Stop: 06/26/21 12:33 Last Admin: 06/26/21 13:12 Dose: Not Given Documented by: Lorazepam (Lorazepam 2 Mg/Ml Sdv) 1 mg IVPUSH ONETIME ONE Stop: 06/26/21 14:47 Last Admin: 06/26/21 14:52 Dose: 1 mg Documented by:
== END 2021-06-26 19:10 | DRG 57 ==
LOC: KA.ED 12:21 → KA.MS 15:16
PROVIDERS: ADMIT Family Medicine; ATTEND Family Medicine
DX: G40.901 Epilepsy, unspecified, not intractable, with status epilepticus (principal); R41.89 Other symptoms and signs involving cognitive functions and awareness; E87.6 Hypokalemia; B18.2 Chronic viral hepatitis C; F17.210 Nicotine dependence, cigarettes, uncomplicated; G81.91 Hemiplegia, unspecified affecting right dominant side; I42.9 Cardiomyopathy, unspecified; G40.909 Epilepsy, unspecified, not intractable, without status epilepticus; H54.7 Unspecified visual loss; I10 Essential (primary) hypertension; Z87.820 Personal history of traumatic brain injury; J44.9 Chronic obstructive pulmonary disease, unspecified; M19.90 Unspecified osteoarthritis, unspecified site; Z86.73 Personal history of transient ischemic attack (TIA), and cerebral infarction without residual deficits; Z79.899 Other long term (current) drug therapy; Z95.5 Presence of coronary angioplasty implant and graft; Z87.891 Personal history of nicotine dependence
CPT/HCPCS: 36415; 70450; 80307; 82140; 82550; 82947; J1953; J2060 ×2; J3360; J7030 ×2; 96365; 96375; 96376; 99284; 99285-25; Q3014